=== PATIENT | male | born 1985 | race African-American/Black ===

== ENCOUNTER 2018-02-13 18:06 | Emergency (ER) | payer OTHER ==
[~2018-02-13] VITALS: Ht 180.3 cm; Wt 56.8 kg
[2018-02-13] MEDS ORDERED: KETOROLAC TROMETHAMINE 30 MG/ML VIAL IM ONE (20:30)
[2018-02-13 21:00] VITALS: BP 105/66
== END 2018-02-13 21:15 | disposition home or self-care (01) ==
LOC: EMS 18:08
DX: M54.42 Lumbago with sciatica, left side (principal)
CPT/HCPCS: 96372; 99283; J1885